=== PATIENT | female | born 1935 | race Hispanic/Latino ===

== ENCOUNTER 2016-12-20 08:13 | Outpatient (CLI) | payer MEDICARE ==
[2016-12-20] MEDS ORDERED: WATER FOR INJ (PF) 10 ML ONE (10:07)
[2016-12-20] MEDS ORDERED: KINEVAC IV ONE ×2 (10:08→10:12)
[2016-12-20] MEDS ORDERED: WATER FOR INJ (PF) IV ONE (10:13)
--- NOTE | 2016-12-20 15:47 | Nuclear Medicine Report ---
HIDA WITH CCK INDICATION: Nausea, right upper quadrant pain. COMPARISON: None similar. FINDINGS: Dynamic right upper quadrant imaging performed in the anterior projection over 60 minutes following uneventful intravenous administration of 5 mCi of Technetium 99m Choletec. Prompt and homogenous hepatic radiotracer uptake with subsequent washout seen with gallbladder activity noted at 10 minutes and bowel activity seen at 20 minutes. Subsequently, 1.9 mcg of cholecystokinin infused intravenously over a period of 3 minutes with the patient's symptoms duplicated. The calculated ejection fraction is 72% (normal greater than 35%). CONCLUSION: No evidence of cholecystitis or biliary dyskinesia. Patient's symptoms though reproduced following CCK. Please correlate. Thank you for the opportunity to participate in this patient's care.
== END 2016-12-20 08:14 | disposition home or self-care (01) ==
LOC: NM 08:13
PROVIDERS: ATTEND Internal Medicine
DX: R11.0 Nausea (principal); R10.11 Right upper quadrant pain
CPT/HCPCS: 78227; A9537; J2805

== ENCOUNTER 2016-12-27 07:40 | Outpatient (CLI) | payer MEDICARE ==
--- NOTE | 2016-12-27 10:05 | Ultrasound Report ---
RIGHT UPPER QUADRANT ULTRASOUND: HISTORY: Nausea. Technique: Transabdominal ultrasound imaging with Doppler interrogation. FINDINGS: The gallbladder is sonolucent with no evidence of stones, polyps or wall thickening. The common duct is normal in caliber. Mild fatty infiltration of the liver is suspected. No surface nodularity or suspicious mass. The visualized pancreas is unremarkable. The aorta is normal caliber. 3 cysts are identified in the right kidney. The largest cyst measures 8.8 cm at the superior pole. No mass, calculus or hydronephrosis. IMPRESSION: Unremarkable biliary system. Mild fatty infiltration of the liver. Right renal cysts.
== END 2016-12-27 07:41 | disposition home or self-care (01) ==
LOC: US 07:40
PROVIDERS: ATTEND Internal Medicine
DX: N28.1 Cyst of kidney, acquired (principal); K76.0 Fatty (change of) liver, not elsewhere classified; R11.0 Nausea
CPT/HCPCS: 76705

== ENCOUNTER 2018-09-01 14:44 | Outpatient (CLI) | payer MEDICARE ==
--- NOTE | 2018-09-01 21:18 | XRay Report ---
FINAL REPORT EXAM: XR HIP 2-3V RT HISTORY: HIP PAIN, ACUTE RIGHT TECHNIQUE: Frontal view of the pelvis and hips and frontal and frog-lateral views right hip Comparison: None FINDINGS: There is marked degenerative change of the right hip with joint space loss and osteophyte formation. There is increased density with loss of definition of the trabecula in the region of the right femora l neck which may indicate a nonacute nondisplaced femoral neck fracture. Differential diagnosis inclu roberta artifact secondary to periarticular ossification. The left hip is unremarkable in appearance. There is degenerative change of the lower lumbar spine. IMPRESSION: 1. Marked degenerative change right hip. 2. Cannot exclude a nonacute nondisplaced fracture of the right femoral neck. CT would be helpful for further evaluation.
== END 2018-09-01 14:45 | disposition home or self-care (01) ==
LOC: XRAY 14:44
PROVIDERS: ATTEND Internal Medicine
DX: M16.11 Unilateral primary osteoarthritis, right hip (principal); M47.896 Other spondylosis, lumbar region

== ENCOUNTER 2019-07-16 07:32 | Outpatient (CLI) | payer MEDICARE ==
[2019-07-16] MEDS ORDERED: SINCALIDE 5 MCG VIAL IV ONE (08:21)
[2019-07-16] MEDS ORDERED: WATER FOR INJ Sterile (PF) 10 ML IV ONE (08:22)
--- NOTE | 2019-07-16 10:13 | Nuclear Medicine Report ---
NUCLEAR MEDICINE HEPATOBILIARY SCAN INDICATION: INTRACTABLE NAUSEA AND VOMITING. TECHNIQUE: Radiotracer: Tc-99m mebrofenin (by IV): 5.5 mCi. Gallbladder Stimulant: 1.8 mcg of CCK FINDINGS: Hepatic activity: Normal. Biliary activity: Normal. Common bile duct activity at 20 minutes. Gallbladder activity: Normal at 20 minutes. Small bowel activity: After administration of CCK. The gallbladder ejection fraction measures 45%. Normal greater than 35%. The patient reports mild abdominal pain and some nausea following the infusion of CCK. IMPRESSION: No biliary obstruction. Normal gallbladder ejection fraction. Symptomatology as described. Signer Name: Ananda Cheung Jr, MD Signed: 07/16/2019 10:09 AM Workstation Name: [id number]
== END 2019-07-16 07:33 | disposition home or self-care (01) ==
LOC: NM 07:32
PROVIDERS: ATTEND Internal Medicine
DX: R10.9 Unspecified abdominal pain (principal); R11.2 Nausea with vomiting, unspecified
CPT/HCPCS: 78227; A9537; J2805